=== PATIENT | female | born 1940 | race African-American/Black ===

== ENCOUNTER 2018-03-10 10:19 | Emergency (ER) | payer OTHER ==
[2018-03-10 10:31] VITALS: BP 128/61; PULSE 51; TEMP 98.7; BMI 23.5
[2018-03-10 13:37] LABS: BASO % 0.8 % (0-2.0); EOS % 0.8 % (0-4.5); HEMOGLOBIN 13.1 GM/dL (10.7-15.3); LYMPH % 37.6 % (8-40); MCH 26.6 pg (25.7-33.7); MEAN CELL VOLUME 83.2 fl (80-96); MEAN PLT VOLUME 10.5 fl (7.5-11.1); MONO % 6.6 % (3.8-10.2); NEUT % 54.2 % (42.8-82.8); PLATELET COUNT 159 K/MM3 (134-434); RBC 4.92 M/mm3 (3.60-5.2); RDW 15.6 % (11.6-15.6); WHITE BLOOD COUNT 4.4 K/mm3 (4.0-10.0)
[2018-03-10 13:47] LABS: INR 1.02 (0.83-1.09)
[2018-03-10] MEDS ORDERED: SODIUM CHLORIDE 1,000 ML IV STA (14:12)
[2018-03-10 14:24] LABS: ALBUMIN 3.5 g/dl (3.4-5.0); ALK PHOS 44 U/L (45-117); ANION GAP 7 MMOL/L (8-16); BILIRUBIN,TOTAL 0.3 mg/dL (0.2-1); BLOOD UREA NITROGEN 16 mg/dL (7-18); CHLORIDE 103 mmol/L (98-107); CO2 28 mmol/L (21-32); CREATININE 0.8 mg/dL (0.55-1.3); GLUCOSE,RANDOM 89 mg/dL (74-106); MAGNESIUM 2.2 mg/dL (1.8-2.4); PHOSPHOROUS 3.8 mg/dL (2.5-4.9); POTASSIUM 4.1 mmol/L (3.5-5.1); SGOT/AST 22 U/L (15-37); SGPT/ALT 22 U/L (13-61); SODIUM 138 mmol/L (136-145); TOT PROT 7.6 g/dl (6.4-8.2)
--- NOTE | 2018-03-10 15:12 | PDOC ---
History of Present Illness - General Chief Complaint: Loss of Appetite Stated Complaint: COLD SYMPTOMS Time Seen by Provider: 03/10/18 12:09 History Source: Patient Exam Limitations: No Limitations - History of Present Illness Initial Comments: 03/10/18 14:53 Pt is a 77yo f with PMH of htn, dementia, Shasta Palsy presenting to ED with complaints of "sluggishness". Pt came from [facility] to visit her son about 1 week ago and started having feelings of fatigue, decreased appetite for the past couple of days. She is also complaining of bilateral leg aches that are on and off. Per son she has also had some episodes of cough with clear phlegm. She admits to weight loss of 8lb within the past 3 weeks. She denies fever, chills, SOB, chest pain, throat pain, headache, neck pain, changes in vision, n/v/d, bloating. she states that her urine has been smelling stronger and looks more concentrated. Denies hematuria. No recent illnesses PCP: in [facility] PMH: see hpi PSH: hysterectomy Meds: see med rec Social: denies Allergies: nkda Past History - Past Medical History Allergies/Adverse Reactions: Allergies Allergy/AdvReac Type Severity Reaction Status Date / Time No Known Allergies Allergy Verified 03/10/18 10:25 Home Medications: Ambulatory Orders Amlodipine Besylate 10 mg PO DAILY 03/10/18 Aspirin [ASA -] 81 mg PO DAILY 03/10/18 Atorvastatin Ca [Lipitor] 20 mg PO HS 03/10/18 Donepezil HCl [Aricept] 5 mg PO HS 03/10/18 Indapamide [Lozol -] 1.5 mg PO DAILY 03/10/18 Metoprolol Tartrate 100 mg PO BID 03/10/18 Valsartan 320 mg PO DAILY 03/10/18 COPD: No HTN: Yes Other medical history: dementia - Immunization History Immunization Up to Date: Yes - Suicide/Smoking/Psychosocial Hx Smoking History: Never smoked Review of Systems - Review of Systems Constitutional: Yes: Loss of Appetite, Unintentional Wgt. Loss. No: Chills, Fever HEENTM: No: Eye Pain, Blurred Vision, Nose Pain, Nose Congestion, Throat Pain, Throat Swelling Respiratory: Yes: Cough. No: Shortness of Breath, Wheezing, Hemoptysis Cardiac (ROS): No: Chest Pain, Lightheadedness, Palpitations, Syncope ABD/GI: Yes: Poor Appetite. No: Blood Streaked Bowels, Constipated, Diarrhea, Nausea, Rectal Bleeding, Vomiting, Abdominal cramping : No: Dysuria, Discharge, Frequency, Flank Pain, Hematuria, Incontinence Musculoskeletal: No: Back Pain, Joint Pain, Muscle Pain, Neck Pain Neurological: No: Headache, Numbness, Paresthesia, Tingling, Tremors Endocrine: Yes: Unexplained Weight Loss. No: Intolerance to Cold, Intolerance to Heat, Unexplained Weight Gain *Physical Exam - Vital Signs Last Vital Signs Temp Pulse Resp BP Pulse Ox 98.7 F 51 L 18 128/61 100 03/10/18 10:03/10/18 10:03/10/18 10:03/10/18 10:03/10/18 10:26 - Physical Exam General Appearance: Yes: Nourished, Appropriately Dressed, Thin. No: Apparent Distress HEENT: positive: EOMI, ARLINE. negative: Pale Conjunctivae, Scleral Icterus (R), Scleral Icterus (L), Pharyngeal Erythema, Tonsillar Exudate, Tonsillar Erythema , Rhinorrhea Neck: positive: Trachea midline, Supple, Thyromegaly. negative: Normal Thyroid (R thyroid lobe enlarged and palpable. Not tender, no overlying skin changes.), Carotid bruit, Decreased range of motion, Lymphadenopathy (R), Lymphadenopathy ( L) Respiratory/Chest: positive: Lungs Clear, Normal Breath Sounds. negative: Rapid RR, Decreased Breath Sounds, Crackles, Rales, Rhonchi Cardiovascular: positive: Regular Rhythm, S1, S2, Bradycardia. negative: Edema , JVD, Murmur Vascular Pulses: Carotid (R): 2+, Carotid (L): 2+, Dorsalis-Pedis (R): 2+, Doralis-Pedis (L): 2+ Gastrointestinal/Abdominal: positive: Normal Bowel Sounds, Soft. negative: Distended, Guarding, Rebound, Tenderness Musculoskeletal: negative: CVA Tenderness, CVA Tenderness (R), CVA Tenderness (L ), Muscle Spasm Extremity: positive: Normal Capillary Refill. negative: Coldness, Cyanosis, Swelling, Calf Tenderness, Erythema Integumentary: positive: Normal Color, Dry, Warm. 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01 03/10/18 13:16 PT with INR 12.00 INR 1.02 Sodium Potassium Chloride Carbon Dioxide Anion Gap BUN Creatinine Creat Clearance w eGFR Random Glucose Calcium Phosphorus Magnesium Total Bilirubin AST ALT Alkaline Phosphatase Troponin I Total Protein Albumin TSH Free T4 03/10/18 13:16 RBC 4.92 MCV 83.2 MCHC 32.0 RDW 15.6 MPV 10.5 Neutrophils % 54.2 Lymphocytes % 37.6 Monocytes % 6.6 Eosinophils % 0.8 Basophils % 0.8 - RADIOLOGY Radiology Studies Ordered: Category Date Time Status CHEST PA & LAT [RAD] Stat Radiology 03/10/18 12:39 Ordered Medical Decision Making - Medical Decision Making 03/10/18 20:38 77yo f with pmh of htn, dementia bells palsy Vitals: bradycardia, normotensive, afebrile PE: enlarged thyroid gland Will do basic labs, ekg, troponin, ua and TSH/free t4 Ekg; sinus yesica, normal pr, qt, qrs, normal axis, no juan or depressions, inverted t in v1-v6, III. Labs: wnl. normal thyroid levels. UA negative 03/10/18 20:55 PT feeling well and eating food from tray in ED. hemodynamically stable and will DC home. per famly, pt is able to see a doctor here. Pt advised to continue follow up in [facility]. Safe for dc home. Given strict return precautions. family agrees with plan and understands return. *DC/Admit/Observation/Transfer Diagnosis at time of Disposition: Enlargement of thyroid Fatigue Qualifiers: Fatigue type: unspecified Qualified Code(s): R53.83 - Other fatigue - Discharge Dispostion Disposition: HOME Condition at time of disposition: Improved Decision to Admit order: No - Referrals - Patient Instructions Printed Discharge Instructions: DI for Hyperthyroidism, DI for Fatigue, DI for Hypothyroidism Additional Instructions: You were seen here today for evaluation of feelings of fatigue and loss of appetite. We did blood tests and everything was normal. I suggest following up with your doctor for evaluation of your thyroid gland. I also suggest you see an ball ender (a doctor for hormones). Your labs in the emergency room today were normal. Please keep yourself hydrated and eat healthy foods. Please come back to the ED if: you feel weak, feel like you are going to pass out, have chest pains, your legs start to swell, develop nausea, vomiting, and/ or diarrhea, or if any new concerning symptom develops. Thank you. - Post Discharge Activity
[2018-03-10 16:02] LABS: URINE APPEARANCE CLEAR; URINE BILIRUBIN NEGATIVE (<2.0 mg/dL); URINE COLOR YELLOW; URINE GLUCOSE (UA) NEGATIVE (NEGATIVE); URINE KETONE NEGATIVE (NEGATIVE); URINE LEUK ESTERASE NEGATIVE (NEGATIVE); URINE NITRITE NEGATIVE (NEGATIVE); URINE PROTEIN NEGATIVE (NEGATIVE); URINE UROBILINOGEN NEGATIVE mg/dL (0.2-1.0)
--- NOTE | 2018-03-10 16:12 | PDOC ---
Attending Attestation - Resident Resident Name: Miranda Rodriguez - ED Attending Attestation I have performed the following: I have examined & evaluated the patient, The case was reviewed & discussed with the resident, I agree w/resident's findings & plan - HPI HPI: 03/10/18 16:04 77 YOF, with a significant past medical history of HTN, dementia, Knutson's Palsy, who presents to the emergency department with, 3 weeks of generalized fatigue. Patient notes her symptoms onset after coming back from visiting her family member in [facility]. Patient also endorses an 8lb weight loss over 3 weeks. Patients son 1 week of concentrated urine. The patient also notes a month enlargement to the right side of her thyroid which she has not followed up with her PCP about. She denies recent fevers, chills, headache or dizziness. She denies recent nausea, vomit, diarrhea or constipation. She denies recent dysuria, frequency, urgency or hematuria. She denies recent chest pain or shortness of breath. Allergies: NKA Past surgical history: None reported. Social history: Nonsmoker. Denies EtOH use and recreational drug use. - Physicial Exam PE: 03/10/18 16:05 NAD, well appearing, MMM, nl conjunctiva, anicteric; neck supple. +enlargement of the right side of the thyroid, soft and mobile, nontender. lungs clear, RRR, abdomen soft nontender. 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 No peripheral edema. normal color for ethnicity, WWP. gait stable. - Medical Decision Making 03/10/18 16:04 77 YOF, with a significant past medical history of HTN, dementia, Knutson's Palsy, who presents to the emergency department with, 3 weeks of generalized fatigue +enlarged thyroid gland she noticed x 1 month. no leg swelling, neuro changes, cp, sob, dizziness, focal weakness or paresthesias. vitals wnl. labs and lytes wnl. tsh and thyroid levels normal. EKG sinus bradycardia, no interval abnormalities, narrow QRS, ST and T wave segments and morphology normal. Nonspecific T wave abnormalities in precordial and III trop negative, doubt ACS with no CP or sob, lungs are clear no imaging indicated. UA neg for infection. kj PO, walking around department w/o complaints. Pt to be discharged in stable condition. Patient and family made aware of impression and plan, return precautions discussed (including but not limited to worsening pain or symptoms), fevers, or signs of infection, chest pain, respiratory distress, inability to tolerate oral intake, dehydration, syncope, or neurologic changes). Follow up with PMD and/or specialist as recommended, follow up information provided, take medications as instructed for duration of time. continue with supportive care, avoid triggers and precipitants. 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 03/10/18 16:06
--- NOTE | 2018-03-11 10:44 | EKG ---
Test Reason : Blood Pressure : / mmHG Vent. Rate : 040 BPM Atrial Rate : 040 BPM P-R Int : 130 ms QRS Dur : 094 ms QT Int : 442 ms P-R-T Axes : 011 -08 -07 degrees QTc Int : 360 ms POOR DATA QUALITY, INTERPRETATION MAY BE ADVERSELY AFFECTED MARKED SINUS BRADYCARDIA INCOMPLETE RIGHT BUNDLE BRANCH BLOCK VOLTAGE CRITERIA FOR LEFT VENTRICULAR HYPERTROPHY T WAVE ABNORMALITY, CONSIDER ANTEROLATERAL ISCHEMIA ABNORMAL ECG WHEN COMPARED WITH ECG OF 26-MAR-2001 15:24, T WAVE INVERSION NOW EVIDENT IN ANTERIOR LEADS QT HAS SHORTENED Confirmed by Willis Mendes MD ([id number]) on 03/11/2018 10:44:41 AM Referred By: Confirmed By:Willis Mendes MD
== END 2018-03-10 17:00 | disposition home or self-care (01) ==
LOC: JER 10:19
PROC: 3E0337Z Introduction of Electrolytic and Water Balance Substance into Peripheral Vein, Percutaneous Approach (ICD-10-PCS; principal; 2018-03-10)
DX: R53.83 Other fatigue (principal); E04.9 Nontoxic goiter, unspecified; I10 Essential (primary) hypertension; F03.90 Unspecified dementia, unspecified severity, without behavioral disturbance, psychotic disturbance, mood disturbance, and anxiety; G51.0 Bell's palsy
CPT/HCPCS: 36415; 80053; 81003; 83735; 84100; 84439; 84443; 84484; 85025; 85610; 87086; 93005; 93010; 99281-25; J7030

== ENCOUNTER 2021-04-21 18:18 | Inpatient (IN) | payer OTHER ==
[2021-04-21 18:31] VITALS: BMI 27.4
[2021-04-21] MEDS ORDERED: hydrALAZINE HCL 20 MG/ML VIAL IVPUSH ONE ×2 (19:40→22:19)
[2021-04-21] MEDS ORDERED: ASPIRIN 81 MG CHEWABLE TABLETS PO ONE (19:41)
[2021-04-21] MEDS ORDERED: ASPIRIN 81 MG CHEWABLE TABLETS ONE (19:48)
[2021-04-21] MEDS ORDERED: hydrALAZINE HCL 20 MG/ML VIAL ONE ×2 (19:49→22:24)
[2021-04-21 20:40] LABS: BASO % 1.1 % (0-2.0); EOS % 0.4 % (0-4.5); HEMATOCRIT 36.9 % (32.4-45.2); HEMOGLOBIN 12.2 GM/dL (10.7-15.3); LYMPH % 18.6 % (8-40); MCH 26.8 pg (25.7-33.7); MEAN CELL VOLUME 81.3 fl (80-96); MEAN PLT VOLUME 9.9 fl (7.5-11.1); MONO % 1.9 % (3.8-10.2); PLATELET COUNT 163 10^3/uL (134-434); RBC 4.54 M/mm3 (3.60-5.2); RDW 15.5 % (11.6-15.6); WHITE BLOOD COUNT 4.9 K/mm3 (4.0-10.0)
[2021-04-21 20:46] LABS: INR 0.99 (0.83-1.09); PROTHROMBIN TIME (PATIENT) 11.6 SEC (9.7-13.0)
[2021-04-21 20:47] LABS: EPI CELLS 4 /uL (0-25.1); HYALINE CASTS 0 /uL (0-3.1); URINE APPEARANCE CLEAR; URINE BACTERIA 1 /uL (0-1359); URINE BILIRUBIN NEGATIVE (NEGATIVE); URINE COLOR YELLOW; URINE GLUCOSE (UA) NEGATIVE (NEGATIVE); URINE KETONE NEGATIVE (NEGATIVE); URINE LEUK ESTERASE NEGATIVE (NEGATIVE); URINE NITRITE NEGATIVE (NEGATIVE); URINE PROTEIN TRACE (NEGATIVE); URINE RBC 21 /uL (0-23.9); URINE UROBILINOGEN 0.2 mg/dL (0.2-1.0); URINE WBC 1 /uL (0-25.8)
[2021-04-21 20:49] LABS: ACTIVATED PTT 25.4 SECONDS (25.2-36.5)
[2021-04-21 20:57] LABS: CHLORIDE 109 mmol/L (98-107); SODIUM 142 mmol/L (136-145)
[2021-04-21 20:59] LABS: ALBUMIN 3.4 g/dl (3.4-5.0); ANION GAP 6 MMOL/L (8-16); BLOOD UREA NITROGEN 10.5 mg/dL (7-18); CALCIUM 8.7 mg/dL (8.5-10.1); CO2 27 mmol/L (21-32); GLUCOSE,RANDOM 139 mg/dL (74-106)
[2021-04-21 21:02] LABS: CHOLESTEROL 197 mg/dL (50-200); SGOT/AST 17 U/L (15-37); SGPT/ALT 13 U/L (13-61)
[2021-04-21 21:03] LABS: CREATININE 0.8 mg/dL (0.55-1.3); TRIGLYCERIDES 79 mg/dL (0-150)
[2021-04-21 21:04] LABS: BILIRUBIN,TOTAL 0.3 mg/dL (0.2-1); TOT PROT 7.6 g/dl (6.4-8.2)
[2021-04-21 21:05] LABS: ALK PHOS 47 U/L (45-117); HDL CHOLESTEROL 96 mg/dL (40-60)
[2021-04-21 21:06] LABS: LDL CHOLESTEROL (ONLY SJRH) 80 mg/dL (5-100)
[2021-04-22] MEDS: ENOXAPARIN NA (PORCINE) 40 MG/0.4 ML DISP.SYRIN SQ SCH (09:37)
[2021-04-22] MEDS: ASPIRIN 81 MG CHEWABLE TABLETS PO SCH (09:37)
[2021-04-22 11:37] LABS: BASO % 0.5 % (0-2.0); EOS % 0.1 % (0-4.5); HEMATOCRIT 39.4 % (32.4-45.2); HEMOGLOBIN 12.8 GM/dL (10.7-15.3); LYMPH % 18.8 % (8-40); MCH 26.9 pg (25.7-33.7); MCHC 32.5 g/dl (32.0-36.0); MEAN CELL VOLUME 82.9 fl (80-96); MEAN PLT VOLUME 11.3 fl (7.5-11.1); MONO % 4.9 % (3.8-10.2); NEUT % 75.7 % (42.8-82.8); PLATELET COUNT 191 10^3/uL (134-434); RBC 4.75 M/mm3 (3.60-5.2); RDW 15.4 % (11.6-15.6); WHITE BLOOD COUNT 7.7 K/mm3 (4.0-10.0)
[2021-04-22 11:58] LABS: ALBUMIN 3.6 g/dl (3.4-5.0); CALCIUM 9.4 mg/dL (8.5-10.1); MAGNESIUM 2.2 mg/dL (1.8-2.4)
[2021-04-22 12:01] LABS: PHOSPHOROUS 3.6 mg/dL (2.5-4.9)
[2021-04-22 12:02] LABS: CREATININE 0.8 mg/dL (0.55-1.3)
[2021-04-22 12:03] LABS: BILIRUBIN,TOTAL 0.5 mg/dL (0.2-1)
[2021-04-22] MEDS ORDERED: QUEtiapine FUMARATE 25 MG TABLET PO ONE (16:32)
[2021-04-22] MEDS ORDERED: amLODIPine BESYLATE 10 MG TABLET (FP) PO ONE (17:00)
[2021-04-23 07:26] LABS: CALCIUM 8.6 mg/dL (8.5-10.1)
[2021-04-23 07:30] LABS: CREATININE 0.8 mg/dL (0.55-1.3); PHOSPHOROUS 3.4 mg/dL (2.5-4.9)
[2021-04-23 08:09] LABS: HEMATOCRIT 37.1 % (32.4-45.2); HEMOGLOBIN 12.3 GM/dL (10.7-15.3); MCH 27.1 pg (25.7-33.7); MCHC 33.2 g/dl (32.0-36.0); MEAN CELL VOLUME 81.5 fl (80-96); MEAN PLT VOLUME 10.6 fl (7.5-11.1); PLATELET COUNT 162 10^3/uL (134-434); RBC 4.55 M/mm3 (3.60-5.2); RDW 15.5 % (11.6-15.6); WHITE BLOOD COUNT 6.1 K/mm3 (4.0-10.0)
[2021-04-23] MEDS: ATORVASTATIN CA 80 MG TABLET (FP) PO SCH ×2 (08:31→21:55)
[2021-04-23] MEDS: ENOXAPARIN NA (PORCINE) 40 MG/0.4 ML DISP.SYRIN SQ SCH (09:59)
[2021-04-23] MEDS: amLODIPine BESYLATE 10 MG TABLET (FP) PO SCH (10:00)
[2021-04-23] MEDS: ASPIRIN 81 MG CHEWABLE TABLETS PO SCH (10:00)
[2021-04-23] MEDS ORDERED: QUEtiapine FUMARATE 25 MG TABLET PO ONE (16:06)
[2021-04-24 08:54] LABS: BASO % 0.6 % (0-2.0); EOS % 1.8 % (0-4.5); HEMATOCRIT 36.9 % (32.4-45.2); HEMOGLOBIN 12.2 GM/dL (10.7-15.3); MCH 27.1 pg (25.7-33.7); MEAN CELL VOLUME 82.1 fl (80-96); MEAN PLT VOLUME 10.3 fl (7.5-11.1); MONO % 8.9 % (3.8-10.2); NEUT % 46.7 % (42.8-82.8); PLATELET COUNT 183 10^3/uL (134-434); RDW 15.3 % (11.6-15.6); WHITE BLOOD COUNT 4.5 K/mm3 (4.0-10.0)
[2021-04-24 09:25] LABS: ALBUMIN 3.1 g/dl (3.4-5.0); MAGNESIUM 2.2 mg/dL (1.8-2.4)
[2021-04-24 09:28] LABS: CREATININE 0.9 mg/dL (0.55-1.3); PHOSPHOROUS 3.5 mg/dL (2.5-4.9)
[2021-04-24 09:30] LABS: BILIRUBIN,TOTAL 0.5 mg/dL (0.2-1); TOT PROT 6.9 g/dl (6.4-8.2)
[2021-04-24] MEDS: ASPIRIN 81 MG CHEWABLE TABLETS PO SCH (10:08)
[2021-04-24] MEDS: amLODIPine BESYLATE 10 MG TABLET (FP) PO SCH (10:08)
[2021-04-24] MEDS: ENOXAPARIN NA (PORCINE) 40 MG/0.4 ML DISP.SYRIN SQ SCH (10:08)
[2021-04-24] MEDS: ATORVASTATIN CA 80 MG TABLET (FP) PO SCH (23:02)
[2021-04-25 11:11] LABS: BASO % 0.9 % (0-2.0); EOS % 1.5 % (0-4.5); HEMATOCRIT 38.2 % (32.4-45.2); HEMOGLOBIN 12.4 GM/dL (10.7-15.3); LYMPH % 38.8 % (8-40); MCHC 32.5 g/dl (32.0-36.0); MEAN CELL VOLUME 83.2 fl (80-96); MEAN PLT VOLUME 10.7 fl (7.5-11.1); MONO % 8.6 % (3.8-10.2); NEUT % 50.2 % (42.8-82.8); PLATELET COUNT 185 10^3/uL (134-434); RBC 4.59 M/mm3 (3.60-5.2); RDW 15.5 % (11.6-15.6); WHITE BLOOD COUNT 4.5 K/mm3 (4.0-10.0)
[2021-04-25] MEDS: amLODIPine BESYLATE 10 MG TABLET (FP) PO SCH (11:36)
[2021-04-25] MEDS: ASPIRIN 81 MG CHEWABLE TABLETS PO SCH (11:36)
[2021-04-25] MEDS: ENOXAPARIN NA (PORCINE) 40 MG/0.4 ML DISP.SYRIN SQ SCH (11:36)
[2021-04-25 11:51] LABS: CALCIUM 9.1 mg/dL (8.5-10.1)
[2021-04-25 11:52] LABS: ALBUMIN 3.5 g/dl (3.4-5.0); BLOOD UREA NITROGEN 18.9 mg/dL (7-18); MAGNESIUM 2.2 mg/dL (1.8-2.4)
[2021-04-25 11:55] LABS: CREATININE 0.9 mg/dL (0.55-1.3); PHOSPHOROUS 3.6 mg/dL (2.5-4.9)
[2021-04-25 11:56] LABS: BILIRUBIN,TOTAL 0.4 mg/dL (0.2-1)
[2021-04-25 11:57] LABS: TOT PROT 7.5 g/dl (6.4-8.2)
[2021-04-25] MEDS: ATORVASTATIN CA 80 MG TABLET (FP) PO SCH (21:33)
[2021-04-25] MEDS: DONEPEZIL HCL 5 MG TABLET (FP) PO SCH (21:33)
[2021-04-26 08:34] LABS: BASO % 0.8 % (0-2.0); EOS % 2.9 % (0-4.5); HEMATOCRIT 36.7 % (32.4-45.2); LYMPH % 51.4 % (8-40); MCH 27.2 pg (25.7-33.7); MCHC 32.8 g/dl (32.0-36.0); MEAN CELL VOLUME 82.7 fl (80-96); MEAN PLT VOLUME 10.3 fl (7.5-11.1); MONO % 7.1 % (3.8-10.2); NEUT % 37.8 % (42.8-82.8); PLATELET COUNT 175 10^3/uL (134-434); RBC 4.43 M/mm3 (3.60-5.2); RDW 15.4 % (11.6-15.6); WHITE BLOOD COUNT 4.1 K/mm3 (4.0-10.0)
[2021-04-26 09:27] LABS: BLOOD UREA NITROGEN 14.9 mg/dL (7-18); CALCIUM 8.8 mg/dL (8.5-10.1)
[2021-04-26 09:28] LABS: ALBUMIN 3.1 g/dl (3.4-5.0); MAGNESIUM 2.2 mg/dL (1.8-2.4)
[2021-04-26 09:30] LABS: CREATININE 0.9 mg/dL (0.55-1.3); PHOSPHOROUS 3.9 mg/dL (2.5-4.9)
[2021-04-26 09:32] LABS: BILIRUBIN,TOTAL 0.9 mg/dL (0.2-1); TOT PROT 6.8 g/dl (6.4-8.2)
[2021-04-26] MEDS: ASPIRIN 81 MG CHEWABLE TABLETS PO SCH (11:09)
[2021-04-26] MEDS: amLODIPine BESYLATE 10 MG TABLET (FP) PO SCH (11:09)
[2021-04-26] MEDS: ENOXAPARIN NA (PORCINE) 40 MG/0.4 ML DISP.SYRIN SQ SCH (11:09)
[2021-04-26] MEDS ORDERED: ACETAMINOPHEN 325 MG TABLET (FP) PO PRN (17:26)
[2021-04-26] MEDS: DONEPEZIL HCL 5 MG TABLET (FP) PO SCH (21:15)
[2021-04-26] MEDS: ATORVASTATIN CA 80 MG TABLET (FP) PO SCH (21:15)
[2021-04-27 08:48] LABS: BASO % 0.6 % (0-2.0); EOS % 2.4 % (0-4.5); HEMATOCRIT 34.9 % (32.4-45.2); HEMOGLOBIN 11.5 GM/dL (10.7-15.3); LYMPH % 45.8 % (8-40); MEAN CELL VOLUME 81.8 fl (80-96); MEAN PLT VOLUME 10.3 fl (7.5-11.1); MONO % 8.7 % (3.8-10.2); NEUT % 42.5 % (42.8-82.8); PLATELET COUNT 167 10^3/uL (134-434); RBC 4.27 M/mm3 (3.60-5.2); RDW 15.5 % (11.6-15.6); WHITE BLOOD COUNT 4.4 K/mm3 (4.0-10.0)
[2021-04-27 09:18] LABS: BLOOD UREA NITROGEN 15.3 mg/dL (7-18)
[2021-04-27 09:19] LABS: BILIRUBIN,TOTAL 0.3 mg/dL (0.2-1)
[2021-04-27 09:20] LABS: TOT PROT 6.6 g/dl (6.4-8.2)
[2021-04-27 09:22] LABS: CALCIUM 8.7 mg/dL (8.5-10.1); CREATININE 0.7 mg/dL (0.55-1.3); PHOSPHOROUS 3.8 mg/dL (2.5-4.9)
[2021-04-27 09:24] LABS: MAGNESIUM 2.1 mg/dL (1.8-2.4)
[2021-04-27] MEDS: amLODIPine BESYLATE 10 MG TABLET (FP) PO SCH (09:32)
[2021-04-27] MEDS: ASPIRIN 81 MG CHEWABLE TABLETS PO SCH (09:32)
[2021-04-27] MEDS: ENOXAPARIN NA (PORCINE) 40 MG/0.4 ML DISP.SYRIN SQ SCH (09:33)
[2021-04-27] MEDS ORDERED: ATORVASTATIN CA 40 MG TABLET (FP) PO SCH (10:16)
[2021-04-27 12:36] VITALS: BP 150/78; PULSE 94; TEMP 98.5
== END 2021-04-27 13:26 | DRG 305 ==
LOC: JER 18:18 → JERBED 23:10 → OBSVTOIN 04-22 01:02 → J4W 04-22 04:08 → J5S 04-24 20:46
PROVIDERS: ADMIT Internal Medicine; ATTEND Internal Medicine
DX: I16.1 Hypertensive emergency (principal); G95.9 Disease of spinal cord, unspecified; I69.359 Hemiplegia and hemiparesis following cerebral infarction affecting unspecified side; R11.2 Nausea with vomiting, unspecified; I10 Essential (primary) hypertension; K57.30 Diverticulosis of large intestine without perforation or abscess without bleeding; E78.5 Hyperlipidemia, unspecified; E04.9 Nontoxic goiter, unspecified; I45.10 Unspecified right bundle-branch block; G51.0 Bell's palsy; F03.90 Unspecified dementia, unspecified severity, without behavioral disturbance, psychotic disturbance, mood disturbance, and anxiety; R00.1 Bradycardia, unspecified; K76.9 Liver disease, unspecified
CPT/HCPCS: 36415; 70450-TC; 70551-TC; 71045-TC-FY; 74177-TC; 80048; 80053; 80061; 81003; 82550; 83036; 83735; 84100; 84443; 84484; 85025; 85027; 85610; 85730; 86850; 86900; 86901; 87086; 93005; 93010; 93306-TC; 93880-TC; 97116-GP; 97162-GP; 99285-25; C9803; G0378; U0003; U0005